=== PATIENT | male | born 1945 | race Caucasian/White ===

== ENCOUNTER 2018-02-15 15:23 | Emergency (ER) | payer OTHER ==
[~2018-02-15] VITALS: Ht 167.6 cm; Wt 95.0 kg
[2018-02-15 16:04] LABS: BASOPHILS # (AUTO) 0.1 X10'3 (0-0.2); BASOPHILS % (AUTO) 0.8 % (0-1); EOSINOPHILS # (AUTO) 0.1 X10'3 (0-0.9); EOSINOPHILS % (AUTO) 1.3 % (0-6); HEMATOCRIT 38.7 % (42.0-52.0); LYMPHOCYTES # (AUTO) 1.4 X10'3 (1.1-4.8); LYMPHOCYTES % (AUTO) 18.8 % (21-51); MEAN CORPUSCULAR HEMOGLOBIN 23.7 PG (27.0-31.0); MEAN CORPUSCULAR VOLUME 76.6 FL (78-98); MONOCYTES # (AUTO) 0.5 X10'3 (0-0.9); MONOCYTES % (AUTO) 7.2 % (2-12); NEUTROPHILS # (AUTO) 5.3 X10'3 (1.8-7.7); NEUTROPHILS % (AUTO) 71.9 % (42-75); PLATELET COUNT 222 X10'3 (140-440); RED BLOOD COUNT 5.05 X10'6 (4.70-6.10); WHITE BLOOD COUNT 7.4 X10'3 (4.5-11.0)
[2018-02-15 16:05] LABS: ALANINE AMINOTRANSFERASE 31 U/L (12-78); ALBUMIN 3.1 G/DL (3.4-5.0); ALBUMIN/GLOBULIN RATIO 0.8 (1.1-1.5); ALKALINE PHOSPHATASE 90 IU/L (46-116); ANION GAP 9 (8-16); ASPARTATE AMINO TRANSFERASE 35 U/L (10-37); BILIRUBIN,TOTAL 0.8 MG/DL (0.1-1.0); BLOOD UREA NITROGEN 20 MG/DL (7-18); BUN/CREATININE RATIO 18.9 (5.4-32.0); CALCIUM 8.3 MG/DL (8.5-10.1); CHLORIDE 104 MMOL/L (99-107); CREATININE 1.06 MG/DL (0.60-1.10); GLUCOSE 95 MG/DL (70-104); POTASSIUM 4.5 MMOL/L (3.5-5.1); SODIUM 141 MMOL/L (135-145); TOTAL CARBON DIOXIDE 28.1 MMOL/L (24-32); TOTAL PROTEIN 6.9 G/DL (6.4-8.2); eGFR 69 ML/MIN
[2018-02-15 16:54] LABS: D-DIMER 1.02 MG/L FEU (0-0.50); INR 1.1 INR; PARTIAL THROMBOPLASTIN TIME 28 SECONDS (22-32); PROTHROMBIN TIME 10.9 SECONDS (9.0-12.0)
[2018-02-15] MEDS ORDERED: iohexol 350MG/ML 100ml bottle IV ONE (17:02)
[2018-02-15] MEDS ORDERED: diltiazem CD 120mg capsule (once-daily) PO SCH (19:40)
[2018-02-15 19:44] VITALS: BP 138/78
== END 2018-02-15 19:54 | disposition home or self-care (01) ==
LOC: ER 15:24
DX: R06.02 Shortness of breath (principal); J43.9 Emphysema, unspecified
CPT/HCPCS: 36415; 71045; 71275; 80053; 84484; 85025; 85379; 85610; 85730; 93005; 99284; Q9967

== ENCOUNTER 2019-12-16 11:27 | Emergency (ER) | payer OTHER ==
[~2019-12-16] VITALS: Ht 167.6 cm; Wt 92.0 kg
[2019-12-16 12:08] LABS: BASOPHILS # (AUTO) 0.1 X10'3 (0-0.2); BASOPHILS % (AUTO) 1.1 % (0-1); EOSINOPHILS # (AUTO) 0.1 X10'3 (0-0.9); EOSINOPHILS % (AUTO) 2.2 % (0-6); HEMATOCRIT 46.6 % (42.0-52.0); HEMOGLOBIN 15.4 g/dl (14.0-17.9); LYMPHOCYTES # (AUTO) 1.3 X10'3 (1.1-4.8); LYMPHOCYTES % (AUTO) 20.5 % (21-51); MEAN CORPUSCULAR HEMOGLOBIN 30.7 PG (27.0-31.0); MEAN CORPUSCULAR VOLUME 93.2 FL (78-98); MEAN PLATELET VOLUME 8.7 FL (7.4-10.4); MONOCYTES # (AUTO) 0.6 X10'3 (0-0.9); MONOCYTES % (AUTO) 9.6 % (2-12); NEUTROPHILS # (AUTO) 4.3 X10'3 (1.8-7.7); NEUTROPHILS % (AUTO) 66.6 % (42-75); PLATELET COUNT 157 X10'3 (140-440); RED BLOOD COUNT 4.99 X10'6 (4.70-6.10); RED CELL DISTRIBUTION WIDTH 14.2 % (11.5-14.5); WHITE BLOOD COUNT 6.5 X10'3 (4.5-11.0)
[2019-12-16] MEDS ORDERED: ipratropium/albuterol 3ml nebule NEB ONE (12:10)
[2019-12-16] MEDS ORDERED: predniSONE 20 mg tablet PO ONE (12:10)
[2019-12-16 12:18] LABS: ALANINE AMINOTRANSFERASE 24 U/L (12-78); ALBUMIN 3.3 G/DL (3.4-5.0); ALBUMIN/GLOBULIN RATIO 0.9 (1.1-1.5); ALKALINE PHOSPHATASE 68 IU/L (46-116); ANION GAP 3 (8-16); ASPARTATE AMINO TRANSFERASE 24 U/L (10-37); BILIRUBIN,TOTAL 0.6 MG/DL (0.1-1.0); BLOOD UREA NITROGEN 28 MG/DL (7-18); BUN/CREATININE RATIO 25.9 (5.4-32.0); CALCIUM 8.2 MG/DL (8.5-10.1); CHLORIDE 111 MMOL/L (99-107); CREATININE 1.08 MG/DL (0.60-1.10); GLUCOSE 68 MG/DL (70-104); POTASSIUM 4.1 MMOL/L (3.5-5.1); SODIUM 143 MMOL/L (135-145); TOTAL CARBON DIOXIDE 28.7 MMOL/L (24-32); TOTAL PROTEIN 6.9 G/DL (6.4-8.2); eGFR 67 ML/MIN
[2019-12-16] MEDS ORDERED: BUDE10.22 INH (12:46)
[2019-12-16] MEDS ORDERED: ALBU18HF2 IH (12:46)
[2019-12-16] MEDS ORDERED: PRED20TA PO (12:46)
[2019-12-16 12:59] VITALS: BP 141/72
== END 2019-12-16 13:42 | disposition home or self-care (01) ==
LOC: ER 11:27
DX: J44.1 Chronic obstructive pulmonary disease with (acute) exacerbation (principal); Z91.14 Patient's other noncompliance with medication regimen; Z79.899 Other long term (current) drug therapy
CPT/HCPCS: 36415; 71045; 80053; 83880; 84484; 85025; 93005; 94640; 99285; J7512

== ENCOUNTER 2020-04-09 23:27 | Emergency (ER) | payer MEDICARE, OTHER ==
[~2020-04-09] VITALS: Ht 167.6 cm; Wt 90.9 kg
[~2020-04-09 23:27] MED LIST: ALBU18HF2 IH; BUDE10.22 INH
[2020-04-10 00:04] LABS: BASOPHILS # (AUTO) 0.1 X10'3 (0-0.2); BASOPHILS % (AUTO) 1.2 % (0-1); EOSINOPHILS # (AUTO) 0.1 X10'3 (0-0.9); HEMATOCRIT 46.7 % (42.0-52.0); HEMOGLOBIN 15.6 g/dl (14.0-17.9); LYMPHOCYTES # (AUTO) 1.6 X10'3 (1.1-4.8); LYMPHOCYTES % (AUTO) 22.7 % (21-51); MEAN CORPUSCULAR HGB CONC 33.5 g/dL (33.0-36.5); MEAN CORPUSCULAR VOLUME 89.6 FL (78-98); MEAN PLATELET VOLUME 8.6 FL (7.4-10.4); MONOCYTES # (AUTO) 0.6 X10'3 (0-0.9); MONOCYTES % (AUTO) 8.3 % (2-12); NEUTROPHILS # (AUTO) 4.5 X10'3 (1.8-7.7); NEUTROPHILS % (AUTO) 65.8 % (42-75); PLATELET COUNT 165 X10'3 (140-440); RED BLOOD COUNT 5.21 X10'6 (4.70-6.10); RED CELL DISTRIBUTION WIDTH 13.5 % (11.5-14.5); WHITE BLOOD COUNT 6.9 X10'3 (4.5-11.0)
[2020-04-10 00:23] LABS: ALANINE AMINOTRANSFERASE 25 U/L (12-78); ALBUMIN 3.4 G/DL (3.4-5.0); ALBUMIN/GLOBULIN RATIO 0.8 (1.1-1.5); ALKALINE PHOSPHATASE 93 IU/L (46-116); ANION GAP 8 (8-16); ASPARTATE AMINO TRANSFERASE 31 U/L (10-37); BILIRUBIN,TOTAL 0.7 MG/DL (0.1-1.0); BLOOD UREA NITROGEN 25 MG/DL (7-18); BUN/CREATININE RATIO 22.5 (5.4-32.0); CHLORIDE 104 MMOL/L (99-107); CREATININE 1.11 MG/DL (0.60-1.10); GLUCOSE 100 MG/DL (70-104); POTASSIUM 4.3 MMOL/L (3.5-5.1); SODIUM 140 MMOL/L (135-145); TOTAL CARBON DIOXIDE 27.9 MMOL/L (24-32); TOTAL PROTEIN 7.8 G/DL (6.4-8.2); eGFR 65 ML/MIN
[2020-04-10] MEDS ORDERED: ipratropium/albuterol 3ml nebule NEB ONE (00:35)
[2020-04-10] MEDS ORDERED: furosemide 10 MG/1 ML 10ml inj IV ONE (00:35)
[2020-04-10] MEDS ORDERED: acetaminophen 325mg tablet PO ONE (00:35)
[2020-04-10] MEDS ORDERED: ketorolac trometh. 30mg/ml inj. IV ONE (00:35)
[2020-04-10] MEDS ORDERED: methylPREDNISolone sod succ 125mg/2ml vial IV ONE (00:35)
[2020-04-10] MEDS ORDERED: normal saline 1000ML IV soln IVB ONE (00:35)
[2020-04-10] MEDS ORDERED: PRED20TA PO (01:22)
[2020-04-10] MEDS ORDERED: CIP750T PO (01:22)
[2020-04-10] MEDS ORDERED: ciprofloxacin 250mg tablet PO ONE (01:25)
[2020-04-10 01:48] VITALS: BP 158/82
== END 2020-04-10 01:49 | disposition home or self-care (01) ==
LOC: ER 23:28
DX: J44.1 Chronic obstructive pulmonary disease with (acute) exacerbation (principal); F20.9 Schizophrenia, unspecified; R05 Cough; R06.02 Shortness of breath; I48.91 Unspecified atrial fibrillation; F17.200 Nicotine dependence, unspecified, uncomplicated; Z79.2 Long term (current) use of antibiotics; Z79.899 Other long term (current) drug therapy
CPT/HCPCS: 36415; 71045; 80053; 83605; 83880; 85025; 87040; 93005; 94640; 96374; 96375; 99285; J1885; J1940; J2930; J7030; 94760; 96361

== ENCOUNTER 2020-10-13 16:48 | Emergency (ER) | payer OTHER, MEDICARE ==
[~2020-10-13] VITALS: Ht 167.6 cm; Wt 93.9 kg
[2020-10-13 17:05] VITALS: BP 106/73
[2020-10-13] MEDS ORDERED: ipratropium/albuterol 3ml nebule NEB ONE (17:20)
--- NOTE | 2020-10-13 19:04 | NUR ---
PATIENT DOES NOT WANT TO WAIT FOR NEB TREATMENT AND DEPARTED FROM ER IN GOOD CONDITION.
== END 2020-10-13 19:05 | disposition home or self-care (01) ==
LOC: ER 16:49
DX: J45.901 Unspecified asthma with (acute) exacerbation (principal); I48.91 Unspecified atrial fibrillation; J43.9 Emphysema, unspecified; Z79.899 Other long term (current) drug therapy
CPT/HCPCS: 71045; 93005; 99283; 99284

== ENCOUNTER 2021-03-19 17:12 | Emergency (ER) | payer OTHER, MEDICARE ==
[~2021-03-19] VITALS: Ht 167.6 cm; Wt 89.0 kg
[2021-03-19] MEDS ORDERED: HYDR-3965 PO (17:49)
[2021-03-19] MEDS ORDERED: PENI250T2 PO (17:49)
[2021-03-19 18:24] VITALS: BP 139/77
== END 2021-03-19 18:24 | disposition home or self-care (01) ==
LOC: ER 17:13
DX: K02.9 Dental caries, unspecified (principal); K08.89 Other specified disorders of teeth and supporting structures; I48.91 Unspecified atrial fibrillation; J43.9 Emphysema, unspecified; Z79.2 Long term (current) use of antibiotics; Z79.899 Other long term (current) drug therapy
CPT/HCPCS: 99283

== ENCOUNTER 2022-01-23 18:11 | Emergency (ER) | payer OTHER, MEDICARE ==
[~2022-01-23] VITALS: Ht 167.6 cm; Wt 87.3 kg
[2022-01-23 18:32] LABS: BASOPHILS # (AUTO) 0.1 X10'3 (0-0.2); BASOPHILS % (AUTO) 0.8 % (0-1); EOSINOPHILS % (AUTO) 0.3 % (0-6); HEMATOCRIT 46.1 % (42.0-52.0); HEMOGLOBIN 15.3 g/dl (14.0-17.9); LYMPHOCYTES # (AUTO) 1.5 X10'3 (1.1-4.8); LYMPHOCYTES % (AUTO) 19.7 % (21-51); MEAN CORPUSCULAR HEMOGLOBIN 30.9 PG (27.0-31.0); MEAN CORPUSCULAR HGB CONC 33.3 g/dL (33.0-36.5); MEAN CORPUSCULAR VOLUME 92.9 FL (78-98); MEAN PLATELET VOLUME 8.5 FL (7.4-10.4); MONOCYTES # (AUTO) 0.8 X10'3 (0-0.9); MONOCYTES % (AUTO) 10.4 % (2-12); NEUTROPHILS # (AUTO) 5.2 X10'3 (1.8-7.7); NEUTROPHILS % (AUTO) 68.8 % (42-75); PLATELET COUNT 143 X10'3 (140-440); RED BLOOD COUNT 4.96 X10'6 (4.70-6.10); RED CELL DISTRIBUTION WIDTH 14.5 % (11.5-14.5); WHITE BLOOD COUNT 7.5 X10'3 (4.5-11.0)
[2022-01-23 18:49] LABS: ALANINE AMINOTRANSFERASE 86 U/L (12-78); ALBUMIN 3.2 G/DL (3.4-5.0); ALBUMIN/GLOBULIN RATIO 0.8 (1.1-1.5); ALKALINE PHOSPHATASE 86 IU/L (46-116); ANION GAP 6 (8-16); ASPARTATE AMINO TRANSFERASE 88 U/L (10-37); BILIRUBIN,TOTAL 0.9 MG/DL (0.1-1.0); BLOOD UREA NITROGEN 37 MG/DL (7-18); BUN/CREATININE RATIO 29.1 (5.4-32.0); CALCIUM 8.4 MG/DL (8.5-10.1); CHLORIDE 102 MMOL/L (99-107); CREATININE 1.27 MG/DL (0.60-1.10); GLUCOSE 101 MG/DL (70-104); POTASSIUM 3.9 MMOL/L (3.5-5.1); SODIUM 139 MMOL/L (135-145); TOTAL CARBON DIOXIDE 31.5 MMOL/L (24-32); eGFR 55 ML/MIN
[2022-01-23 19:02] VITALS: BP 115/60
[2022-01-23] MEDS: normal saline 500ml IV soln 500 ML IV ONE (22:40)
[2022-01-24] MEDS ORDERED: ipratropium/albuterol 3ml nebule NEB STA (01:52)
[2022-01-24] MEDS ORDERED: normal saline 500ml IV soln 500 ML IV ONE (01:55)
[2022-01-24] MEDS ORDERED: methylPREDNISolone sod succ 125mg/2ml vial IV ONE (01:55)
[2022-01-24] MEDS ORDERED: albuterol 2.5 MG/3 ML nebule NEB ONE ×2 (01:55)
[2022-01-24] MEDS ORDERED: BENZ-38 PO ×2 (03:39→04:32)
[2022-01-24] MEDS ORDERED: ALB0.5UD IH ×2 (03:39→04:32)
[2022-01-24] MEDS ORDERED: azithromycin 250mg tablet PO ONE (03:40)
[2022-01-24] MEDS ORDERED: benzonatate 100mg capsule PO ONE (03:40)
--- NOTE | 2022-01-24 04:59 | NUR ---
IV DC'D PT BEING DISCHARGED DRESSING APPLIED
== END 2022-01-24 05:00 | disposition home or self-care (01) ==
LOC: ER 18:12
DX: R06.02 Shortness of breath (principal); Z20.822 Contact with and (suspected) exposure to COVID-19; I48.91 Unspecified atrial fibrillation; J43.9 Emphysema, unspecified; F17.200 Nicotine dependence, unspecified, uncomplicated; Z87.01 Personal history of pneumonia (recurrent); Z79.899 Other long term (current) drug therapy
CPT/HCPCS: 36415; 71045; 80053; 83735; 83880; 84145; 84484; 85025; 87502; 87503; 87635; 93005; 96361; 96374; 99285; C9803; J2930; J7040; 94760